=== PATIENT | female | born 1945 | race African-American/Black ===

== ENCOUNTER 2019-07-23 06:08 | Day surgery (SDC) | payer OTHER ==
[2019-07-23 06:46] VITALS: BMI 30.4
[2019-07-23] MEDS ORDERED: PROPOFOL 20 ML ONE ×2 (08:45→10:09)
[2019-07-23] MEDS ORDERED: MIDAZOLAM HCL 2 MG/2 ML SINGLE DOSE VIAL ONE (08:45)
[2019-07-23] MEDS ORDERED: ceFAZolin SODIUM 1 GM VIAL ONE (08:46)
[2019-07-23] MEDS ORDERED: DEXAMETHASONE SOD PHOSPHATE 4 MG/1 ML VIAL ONE (08:46)
--- NOTE | 2019-07-23 09:21 | HP ---
History & Physical Update - History History: No Change - Physical Physical: No Change - Assessment Assessment: No Change - Plan Plan: No Change
[2019-07-23] MEDS ORDERED: ceFAZolin SODIUM 1 GM VIAL IVPB ONE (10:03)
[2019-07-23] MEDS ORDERED: LIDOCAINE HCL 1%, 10 MG/ML (20ML VIAL) ONE (10:15)
[2019-07-23] MEDS ORDERED: LIDOCAINE HCL 1%, 10 MG/ML (20ML VIAL) PNB ONE (10:21)
[2019-07-23] MEDS ORDERED: KETOROLAC TROMETHAMINE 30 MG/1 ML VIAL ONE (10:48)
[2019-07-23] MEDS ORDERED: ONDANSETRON 4 MG/2 ML VIAL IVPUSH PRN (11:10)
[2019-07-23] MEDS ORDERED: LACTATED RINGERS SOLUTION 1,000 ML IV SCH (11:15)
--- NOTE | 2019-07-23 12:19 | OP ---
DATE OF OPERATION: 07/23/2019 PREOPERATIVE DIAGNOSIS: Right breast cancer. POSTOPERATIVE DIAGNOSIS: Right breast cancer. PROCEDURE: Right breast lumpectomy with sentinel node biopsy. SURGEON: Jenn Gore MD ANESTHESIA: General. ESTIMATED BLOOD LOSS: Minimal. COMPLICATIONS: None. This was a sterile procedure. INDICATION FOR PROCEDURE: Patient presented with a palpable mass in the upper outer right breast, and a mammogram ultrasound showed a 2.7-cm suspicious mass. A needle biopsy revealed an invasive ductal carcinoma ER/FL and HER2/denzel negative. My recommendation was a lumpectomy and sentinel node biopsy. The procedure was discussed with all of the questions answered. She does have submammary implant, which I discussed with the plastic surgeon can actually be left alone, and she was not interested in removing these implants. PROCEDURE IN DETAIL: Patient was brought to [facility] in [place]. Taken to nuclear medicine where I injected technetium sulfur colloid as an intradermal injection over the palpable mass in the right breast 10-11 o'clock location, 5 cm from the nipple. She was then brought up to the operating room, and after induction of general anesthesia and IV antibiotics, 2.5 mL of Methylene blue diluted with 2.5 mL of injectable saline were injected peritumoral, and the breast was massaged for 5 minutes. The right breast and axilla were then reprepped and draped in the usual sterile fashion. A 4-cm incision was made in the right axilla, carried down to the clavipectoral fascia to identify 3 sentinel lymph nodes. The 1st one was hot and blue, the 2nd was hot but not blue, and the 3rd one was also hot and blue. It was the deepest. There was no other blue dye radioactivity or pathologic feeling lymph nodes in the right axilla; therefore, once hemostasis was assured, the right breast lumpectomy was performed. An ellipse of skin was taken over the palpable mass as this was a very superficial tumor down to the scar covering the implant. This was excised en bloc, tagged with a long stitch lateral, short stitch superior with an ellipse of skin overlying this and sent to Pathology for permanent section. Hemostasis was assured with electrocautery. Grossly, I felt I had adequate margins. Once hemostasis was assured, the parenchyma was approximated with interrupted 2-0 Vicryl, skin approximated with interrupted 3-0 Vicryl and running 4-0 Prolene. The axillary incision was also closed in a routine fashion with interrupted 3-0 Vicryl, running 4-0 Prolene. A sterile dressing with Tegaderm and 4 x 4 was applied. She tolerated the procedure well, was extubated on the operating room table, taken to recovery in good condition. Ministerio [id number]
[2019-07-23 12:34] VITALS: TEMP 97.3
[2019-07-23 14:43] VITALS: PULSE 67
[2019-07-23 18:49] VITALS: BP 141/70
--- NOTE | 2019-07-31 09:38 | PATH ---
Surgical Pathology Report Patient Name: MARLENI MILLER [facility]. Rec. #: [id number] /Age/Gender: 1945 (Age: 73) / F Account: [id number] Location: [facility] SURGICAL Taken: 07/23/2019 Received: 07/24/2019 Reported: 07/31/2019 Physicians: Jenn Gore M.D. Specimen(s) Received A: RIGHT AXILLARY SENTINEL NODE #1 HOT AND BLUE B: RIGHT AXILLARY SENTINEL NODE #2 HOT NOT BLUE C: RIGHT AXILLARY SENTINEL NODE#3 HOT AND BLUE D: RIGHT BREAST LONG STITCH LATERAL SHORT STITCH SUPERIOR Clinical History Right breast cancer Final Diagnosis A. RIGHT AXILLARY SENTINEL NODE #1, HOT AND BLUE, EXCISION: ONE LYMPH NODE, NEGATIVE FOR METASTATIC CARCINOMA (0/1). B. RIGHT AXILLARY SENTINEL NODE #2, HOT NOT BLUE, EXCISION: TWO LYMPH NODES, NEGATIVE FOR METASTATIC CARCINOMA (0/2). C. THERIGHT AXILLARY SENTINEL NODE #3, HOT AND BLUE, EXCISION: TWO LYMPH NODES, NEGATIVE FOR METASTATIC CARCINOMA (0/2). D. RIGHT BREAST LUMPECTOMY: INVASIVE DUCTAL CARCINOMA, POORLY DIFFERENTIATED (TUBULE SCORE 3/3, NUCLEAR GRADE: 3/3, MITOTIC SCORE: 3/3, TOTAL SCORE 9/9, CHRIS GRADE 3), MEASURING 1.9 CM IN GREATEST DIMENSION, MICROSCOPICALLY. 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 SURGICAL MARGINS ARE UNINVOLVED BY CARCINOMA. INVASIVE CARCINOMA IS AT 2 MM FROM THE CLOSEST (POSTERIOR) MARGIN. NO LYMPHOVASCULAR INVASION IS IDENTIFIED. PRIOR BIOPSY SITE WITH REACTIVE CHANGES. PATHOLOGIC STAGE (pTNM): pT1c, pN0 SEE ALSO INVASIVE CARCINOMA CASE SUMMARY BELOW. Comment: Immunohistochemical stains show the following results: The carcinoma is positive for Carly-3 and CK7 (patchy), focally expresses SOX 10, while negative for Mammoglobulin, GCDFP-15, and p40. 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 Carly-3, SOX 10, Mammoglobulin, GCDFP-15, and p40 (block D3) performed at [place], [place] ([id number]) and interpreted at [facility]. CK7 (on block D1) performed and interpreted at [facility]. Comments Breast Invasive Carcinoma: Surgical Pathology Case Summary (Based on AJCC TNM 8 th edition) Procedure _x_ Excision (less than total mastectomy) Specimen Laterality _x_ Right Tumor Size _x_ Greatest dimension of largest invasive focus >1 mm (millimeters): 19mm Histologic Type _x_ Invasive carcinoma of no special type (ductal, not otherwise specified) Histologic Grade ([place] Histologic Score) Glandular (Acinar)/Tubular Differentiation _x_ Score 3 (<10% of tumor area forming glandular/tubular structures) Nuclear Pleomorphism _x_ Score 3 Mitotic Rate _x_ Score 3 Overall Grade _x_ Grade 3 (scores of 8 or 9) Tumor Focality _x_ Single focus of invasive carcinoma Ductal Carcinoma In Situ (DCIS) _x_ No DCIS in specimen Margins Invasive Carcinoma Margins _x_ Uninvolved by invasive carcinoma Distance from closest margin (millimeters): 2mm Closest margin: Posterior margin DCIS Margins _x_ No DCIS in specimen Regional Lymph Nodes _x_ Uninvolved by tumor cells Number of Lymph Nodes Examined: 5 Number of [place] Nodes Examined: 5 Treatment Effect _x_ No known presurgical therapy Lymphovascular Invasion _x_ Not identified Pathologic Stage Classification (pTNM, AJCC 8th Edition) Primary Tumor (Invasive Carcinoma) (pT) _x_ pT1: Tumor =20 mm in greatest dimension Category (pN) _x_ pN0: No regional lymph node metastasis identified or ITCs only Biomarker Studies Results of ER and WV studies performed on prior biopsy ([id number]) at [facility] are as follows: ER (clone [id number] mouse monoclonal antibody by [employer]): <1% nuclear staining (negative). WV (clone16 mouse monoclonal antibody by [employer]): 0% nuclear staining (negative). Results of Her2 (IHC) & Ki-67 studies performed on prior biopsy ([id number]) at [place], [place] ([id number] ) are as follows: Her2 IHC (EP3 from [employer], formerly known as [id number], using [employer] Polymer Refine detection kit): 1+ (negative) Ki67: ~50% (high proliferative index) Electronically Signed Clifford Escalona M.D. Gross Description A. Received in formalin labeled "right axillary sentinel node #1," is a 0.8 x 0.4 x 0.3 cm lymph node with attached fat. The specimen is submitted in toto in one cassette. B. Received in formalin labeled "right axillary sentinel node #2," are 2 lymph nodes with attached fat measuring 1.1 x 0.7 x 0.5 cm and 1.6 x 0.7 x 0.5 cm. The lymph nodes are bisected and entirely submitted in 2 cassettes. C. Received in formalin labeled "right axillary sentinel node #3," are 2 lymph nodes with attached fat measuring 0.5 x 0.4 x 0.3 cm and 2.0 x 1.0 x 0.5 cm. The lymph nodes are bisected and entirely submitted in 2 cassettes. D. Received in formalin, labeled "right breast lumpectomy," is a 6.5 x 4.5 x 2.6 cm. mcnair-yellow, irregular, portion of fibroadipose tissue. There is no needle localization wire present. There is a short suture marking the superior aspect and a long suture marking the lateral aspect, per the surgeon. The anterior surface displays a 5.3 x 1.4 cm brown, elliptical, unremarkable portion of skin. The specimen is inked as follows: Superior blue; inferior green; lateral red; medial yellow; posterior black. The specimen is serially sectioned from lateral to medial. Sectioning reveals a 1.8 x 1.8 x 1.2 cm mcnair, firm, well-circumscribed mass. The mass is 0.3 cm from the posterior margin, 0.4 cm from the superior margin and 0.7 cm from the skin. The remaining margins appear clear of the mass. [place] sections are submitted in 8 cassettes as follows: 1-4-one full-face section of mass each (each with skin, superior and posterior margins); 4-1-lxljymlk margin; 7-lateral margin; 8-medial margin. Total formalin fixation time: Approximately 24 hours 07/24/201907/24/2019
== END 2019-07-23 18:43 | disposition home or self-care (01) ==
LOC: JASU-SURG 06:08
PROVIDERS: ATTEND Surgery
PROC: C71L1ZZ Planar Nuclear Medicine Imaging of Upper Chest Lymphatics using Technetium 99m (Tc-99m) (ICD-10-PCS; 2019-07-23)
PROC: 0HBT0ZZ Excision of Right Breast, Open Approach (ICD-10-PCS; principal; 2019-07-23 09:00)
PROC: 07B50ZX Excision of Right Axillary Lymphatic, Open Approach, Diagnostic (ICD-10-PCS; 2019-07-23 09:00)
DX: C50.911 Malignant neoplasm of unspecified site of right female breast (principal)
CPT/HCPCS: 78195-TC; 88307-TC; 88342-TC; 94760; A9541